=== PATIENT | male | born 1950 ===

== ENCOUNTER → 2022-11-30 08:23 | Outpatient (BNVA) | payer OTHER, SELFPAY | PROVIDERS: Visit Provider Podiatrist Foot & Ankle Surgery | DX: L60.0 Ingrowing nail (principal) | CPT/HCPCS: 11750; 99203 ==

== ENCOUNTER 2023-10-31 11:08 | Emergency (ER) | payer OTHER, SELFPAY ==
--- NOTE | 2023-10-31 11:09 | XRR_ITS ---
PROCEDURE INFORMATION: Exam: XR Chest Exam date and time: 10/31/2023 11:45 AM Age: 72 years old Clinical indication: Pain; Angina pectoris; Additional info: Cp TECHNIQUE: Imaging protocol: Radiologic exam of the chest. Views: 1 view. COMPARISON: MR shoulder LT wo con* [id number] 11/09/2016 1:15 PM FINDINGS: Lungs: Unremarkable. No consolidation. Pleural spaces: Unremarkable. No pleural effusion. No pneumothorax. Heart/Mediastinum: Mild cardiomegaly accentuated by the AP positioning. Bones/joints: Unremarkable. XR/XR chest 1V portable [id number] IMPRESSION: No acute findings.
--- NOTE | 2023-10-31 11:11 | ECG_ITS ---
[facility] Test Date: 2023-10-31 Pat Name: Omer Agrawal Department: Room: Gender: Male Insurance Case Manager: : [id number] Requested By: Priya Arriaza Order Number: [id number] Ramiro MD: Gagan Calixto M.D. Measurements Intervals [place] Rate: 71 P: 0 DE: 0 QRS: -17 QRSD: 103 T: 70 QT: 369 QTc: 402 Interpretive Statements Sinus arrhythmia POSSIBLE RIGHT VENTRICULAR CONDUCTION DELAY [RSR (QR) IN V1/V2] SEPTAL MYOCARDIAL INFARCTION , OF INDETERMINATE AGE [40+ ms Q WAVE IN V1/V2] No previous ECG available for comparison Electronically Signed On 10-31-2023 16:29:52 SUPERVISOR GARMENT MANUFACTURING by Gagan Calixto M.D. [id number] [place]air
[2023-10-31 11:15] VITALS: BP 132/67; PULSE 76; RESP 17; TEMP 36.7; O2SAT 97; BMI 29.5
--- NOTE | 2023-10-31 11:19 | ED_ITS ---
HPI - Chest Pain 2 General: Chief Complaint: Chest Pain Stated Complaint: chest pain Time Seen by Provider: 10/31/23 11:08 Source: patient Mode of arrival: ambulatory Limitations: no limitations History of Present Illness: 72-year-old male states that he has had some substernal chest pain radiates to his right shoulder since last night he states been a dull ache his pain is currently a 2 out of 10. States he felt like he had overexerted himself last night denies any shortness of breath denies any nausea denies any vomiting or diarrhea. Associated symptoms: Deny abdominal pain, dyspnea, fever(s), nausea or vomiting Review of Systems 2 Const: Denies: fever(s), chills, body aches or change in appetite ENMT: Denies: throat pain or dental pain Card: Reports: chest pain Resp: Denies: dyspnea GI: Denies: abdominal pain, nausea, vomiting or diarrhea Musc: Denies: neck pain or back pain Skin/Breast: Denies: rash Neuro: Denies: headache(s) Physical Exam 2 Const: COMMON NORMALS: no acute distress, patient oriented x3 and healthy appearing HENMT: COMMON NORMALS: normocephalic and atraumatic HEAD & SCALP: n ormocephalic and atraumatic Eye: COMMON NORMALS: Equal, round and reactive pupils present and EOMs intact bilaterally PUPIL: Yes Equal, round and reactive pupils present Neck/C-Spine: COMMON NORMALS: full ROM and supple Chest: COMMONS NORMALS: normal inspection of the chest and normal palpation of entire chest wall Resp: COMMON NORMALS: normal respiratory effort, No retractions, No use of accessory muscles and clear to auscultation bilaterally AUSCULTATION: clear to auscultation bilaterally Cardio: COMMON NORMALS: regular rate, regular rhythm and No murmurs present (Cardio) RATE: regular rate RHYTHM: regular rhythm GI: COMMON NORMALS: Normal to inspection, nondistended, normoactive bowel sounds present, Soft to palpation, non-tender and no masses PALPATION: Yes Soft to palpation Extremity: COMMON NORMALS: normal to inspection and full ROM Neuro: COMMON NORMALS: patient oriented x3, moves all extremities and no focal motor deficits Psych: COMMON NORMALS: mental status grossly normal, Normal thought process present and cooperative THOUGHT PROCESS: Normal thought process present Skin: COMMON NORMALS: no rashes or lesions noted and no wounds GENERAL SKIN EXAM: no rashes or lesions noted Course 2 Vital Signs: Vital signs: Vital Signs Temperature 98.1 F 10/31/23 11:15 Pulse Rate 69 10/31/23 12:30 Respiratory Rate 17 10/31/23 11:15 Blood Pressure 130/62 10/31/23 12:30 Pulse Oximetry 98 10/31/23 12:30 Oxygen Delivery Me thod Room Air 10/31/23 12:30 MDM - Chest Pain Medical Decision Making Patient presents here with chest pain atypical in nature his initial repeat troponins here are negative EKGs are normal as well no signs of ACS he has no signs of dissection or pulmonary embolism he is stable for discharge we will give him follow-up with cardiology he is return if worsening he understands agrees to plan. Medical Records I reviewed the patient's medical records. Lab Data I reviewed the patient's lab results. 10/31/23 10:55 10/31/23 10:55 Radiology Impressions Chest X-Ray 10/31/23 11:09 IMPRESSION: No acute findings. Laboratory Results WBC 4.86 10^3/uL (3.29-11.43) 10/31/23 10:55 RBC 3.12 10^6/uL (3.85-5.65) L 10/31/23 10:55 Hgb 10.10 g/dL (11.27-16.99) L 10/31/23 10:55 Hct 30.0 % (37-53) L 10/31/23 10:55 MCV 96.2 fl (82-101) 10/31/23 10:55 MCH 32.4 pg (27-33) 10/31/23 10:55 MCHC 33.7 g/dL (30-55) 10/31/23 10:55 RDW 17.0 % (12.1-15.1) H 10/31/23 10:55 Plt Count 122 10^3/cmm (157-399) L 10/31/23 10:55 MPV 9.7 fL (7.4-10.4) 10/31/23 10:55 Neut % (Auto) 23.7 % 10/31/23 10:55 Lymph % (Auto) 65.0 % 10/31/23 10:55 [place] % (Auto) 9.5 % 10/31/23 10:55 Eos % (Auto) 0.6 % 10/31/23 10:55 Baso % (Auto) 0.6 % 10/31/23 10:55 Neut # (Auto) 1.15 10^3/uL (1.8-7.7) L 10/31/23 10:55 Lymph # (Auto) 3.2 10^3/uL (0.8-4.8) 10/31/23 10:55 [place] # (Auto) 0.5 10^3/uL (0.2-0.9) 10/31/23 10:55 Eos # (Auto) 0.0 10^3/uL (0.0-0.8) 10/31/23 10:55 Baso # (Auto) 0.0 10^3/uL (0.0-0.1) 10/31/23 10:55 Nucleated RBC % (auto) 0 % 10/31/23 10:55 Nucleated RBCs # 0.0 /100WBC 10/31/23 10:55 Sodium 135 mmol/L (136-145) L 10/31/23 10:55 Potassium 4.2 mmol/L (3.5-5.1) 10/31/23 10:55 Chloride 102 mmol/L (98-107) 10/31/23 10:55 Carbon Dioxide 25 mmol/L (22-29) 10/31/23 10:55 Anion Gap 12.2 (5-19) 10/31/23 10:55 BUN 12 mg/dL (8-23) 10/31/23 10:55 Creatinine 0.6 mg/dL (0.7-1.2) L 10/31/23 10:55 GFR Calculation Not Reportable 10/31/23 10:55 Glucose 136 mg/dL (65-115) H 10/31/23 10:55 Calculated Osmolality 282 mOsm/kg (285-295) L 10/31/23 10:55 Calcium 8.7 mg/dL (8.5-10.5) 10/31/23 10:55 Total Bilirubin 1.4 mg/dL (0.15-1.2) H 10/31/23 10:55 AST 19 U/L (0-40) 10/31/23 10:55 ALT 15 U/L (0-41) 10/31/23 10:55 Alkaline Phosphatase 103 U/L (40-130) 10/31/23 10:55 Troponin T Baseline 17 ng/L (0-15) H 10/31/23 10:55 Troponin T 120 Minute 13.30 ng/L (0-15) 10/31/23 12:46 Total Protein 6.1 g/dL (6.6-8.7) L 10/31/23 10:55 Albumin 3.9 g/dL (3.5-5.2) 10/31/23 10:55 Globulin 2.2 g/dL (1.3-4.6) 10/31/23 10:55 Lipase 22 U/L (13-60) 10/31/23 10:55 All radiology interpretation(s) finalized by discharge EKG Data EKG 1: I personally reviewed and interpreted this EKG as follows: EKG interpretation date: 10/31/23 EKG interpretation time: 11:11 Interpretation: nsr hr [address] or t wave abnormalities qrs 103 qtc 391 EKG 2: I personally reviewed and interpreted this EKG as follows: EKG interpretation date: 10/31/23 EKG interpretation time: 13:11 Interpretation: nsr hr [address] or t wave abnormalities qrs 98 qtc 387 Discharge Plan Discharge Patient Disposition: Home Clinical Impression: Chest pain Condition: Stable Prescriptions: No Action fluorouracil 5 % Cream 1 applic TOPICAL BID sildenafil 100 mg Tablet See Rx Instructions .ROUTE .COMPLEX Rx Instructions: Take 1 tablet by mouth every 2eek as needed for erectile dysfunction. ferrous sulfate 325 mg (65 mg iron) Tablet 325 mg PO DAILY empagliflozin 10 mg Tablet 10 mg PO DAILY Discharge Orders: Discharge ED (Routine); Ordered 10/31/23 Ordered By: Priya Arriaza Referrals: Jose L Montalvo M.D [Physician] - 1-3 days Discharge Diet: Advance as tolerated Discharge Activity: Resume usual activity Patient Instructions: Chest Pain (ED) Coding Level of Care Code ED Foundation Relations Manager for Lida Vance
[2023-10-31 11:20] LABS: Basophils % 0.6 %; Eosinophils % 0.6 %; Lymphocytes # 3.2 10^3/uL (0.8-4.8); Mean Corpuscular HGB Conc 33.7 g/dL (30-55); Mean Corpuscular Hemoglobin 32.4 pg (27-33); Mean Corpuscular Volume 96.2 fl (82-101); Mean Platelet Volume 9.7 fL (7.4-10.4); Monocytes # 0.5 10^3/uL (0.2-0.9); Monocytes % 9.5 %; Neutrophils # 1.15 10^3/uL (1.8-7.7); Neutrophils % 23.7 %; Nucleated Red Blood Cells % 0 %; Platelet Count 122 10^3/cmm (157-399); Red Blood Count 3.12 10^6/uL (3.85-5.65); White Blood Count 4.86 10^3/uL (3.29-11.43)
[2023-10-31 11:30] VITALS: BP 128/73; PULSE 71; O2SAT 96
[2023-10-31 11:40] LABS: Alanine Aminotransferase 15 U/L (0-41); Albumin Level 3.9 g/dL (3.5-5.2); Alkaline Phosphatase 103 U/L (40-130); Anion Gap 12.2 (5-19); Aspartate Amino Transferase 19 U/L (0-40); Blood Urea Nitrogen 12 mg/dL (8-23); Calcium 8.7 mg/dL (8.5-10.5); Carbon Dioxide 25 mmol/L (22-29); Chloride 102 mmol/L (98-107); Globulin 2.2 g/dL (1.3-4.6); Glucose 136 mg/dL (65-115); Lipase 22 U/L (13-60); Osmolality Calculated 282 mOsm/kg (285-295); Potassium 4.2 mmol/L (3.5-5.1); Sodium 135 mmol/L (136-145); Total Bilirubin 1.4 mg/dL (0.15-1.2); Total Protein 6.1 g/dL (6.6-8.7)
[2023-10-31 11:43] LABS: Troponin(5th) Baseline 17 ng/L (0-15)
--- NOTE | 2023-10-31 12:13 | PC.PHAR ---
PT IS [facility] 11:30 AND 12:14
[2023-10-31 12:18] VITALS: BP 120/71; PULSE 70; O2SAT 98
[2023-10-31 12:30] VITALS: BP 130/62; PULSE 69; O2SAT 98
--- NOTE | 2023-10-31 13:11 | ECG_ITS ---
[facility] Test Date: 2023-10-31 Pat Name: Omer Agrawal Department: Room: Gender: Male Solar Sales Energy Advisor: : [id number] Requested By: Priya Arriaza Order Number: [id number] Ramiro MD: Gagan Calixto M.D. Measurements Intervals [place] Rate: 68 P: 66 HI: 114 QRS: 80 QRSD: 98 T: -3 QT: 370 QTc: 395 Interpretive Statements SINUS RHYTHM WITH SHORT HI INTERVAL INCOMPLETE RIGHT BUNDLE BRANCH BLOCK [90+ ms QRS DURATION, TERMINAL R IN V1/V2, 40+ ms S IN I/aVL/V4/V5/V6] SEPTAL MYOCARDIAL INFARCTION , OF INDETERMINATE AGE [40+ ms Q WAVE IN V1/V2] Compared to ECG 10/31/2023 11:11:02 Short HI interval now present Incomplete right bundle-branch block now present Myocardial infarct finding still present Electronically Signed On 10-31-2023 16:32:16 MUSICAL PERFORMER by Gagan Calixto M.D. [id number]
[2023-10-31 13:47] VITALS: BP 155/67; PULSE 73; O2SAT 98
--- NOTE | 2023-11-01 19:39 | DCPLANNER ---
Message sent to Cardiology for a follow up - Chest pain
== END 2023-10-31 13:48 | disposition home or self-care (01) ==
PROVIDERS: Emergency Provider Emergency Medicine
DX: R07.9 Chest pain, unspecified (principal)
CPT/HCPCS: 36415; 71045; 80053; 83690; 84484; 85025; 93005; 99285